=== PATIENT | female | born 1955 | race Caucasian/White ===

== ENCOUNTER → 2023-12-12 15:15 | Outpatient (REF) | payer MEDICARE, SELFPAY | LOC: RAD 15:15 | PROVIDERS: ATTENDING PHYSICIAN Internal Medicine | DX: H92.02 Otalgia, left ear (principal); M26.609 Unspecified temporomandibular joint disorder, unspecified side | CPT/HCPCS: 70330 ==

== ENCOUNTER → 2023-12-22 10:11 | Outpatient (REF) | payer MEDICARE, SELFPAY ==
[2023-12-22 13:35] LABS: Free T4 1.19 ng/dl (0.78-2.19)
[2023-12-22 13:48] LABS: TSH 1.17 uIU/ml (0.47-4.68)
[2023-12-25 03:21] LABS: Thyroid Stim. Immunoglobulin <0.10 IU/L (<=0.54)
== END ==
LOC: REG 10:11
PROVIDERS: ATTENDING PHYSICIAN Internal Medicine Endocrinology, Diabetes & Metabolism; FAMILY PHYSICIAN Internal Medicine
DX: E05.90 Thyrotoxicosis, unspecified without thyrotoxic crisis or storm (principal)
CPT/HCPCS: 36415; 84439; 84443; 84445; 84481

== ENCOUNTER 2023-12-29 09:25 | Outpatient (RCR) | payer MEDICARE, SELFPAY | END 2023-12-29 23:59 | disposition home or self-care (01) | LOC: RPT 09:25 | PROVIDERS: ATTENDING PHYSICIAN Psychiatry & Neurology Behavioral Neurology & Neuropsychiatry; FAMILY PHYSICIAN Internal Medicine | DX: M54.6 Pain in thoracic spine (principal); Z73.6 Limitation of activities due to disability | CPT/HCPCS: 97110; 97163 ==

== ENCOUNTER 2024-01-14 13:52 | Outpatient (RCR) | payer MEDICARE, SELFPAY | END 2024-01-28 09:23 | disposition home or self-care (01) | LOC: RPT 13:52 | PROVIDERS: ATTENDING PHYSICIAN Psychiatry & Neurology Behavioral Neurology & Neuropsychiatry; FAMILY PHYSICIAN Internal Medicine | DX: M54.6 Pain in thoracic spine (principal); Z73.6 Limitation of activities due to disability; R26.2 Difficulty in walking, not elsewhere classified; M62.81 Muscle weakness (generalized) | CPT/HCPCS: 97010; 97110; 97112; 97140 ==

== ENCOUNTER → 2024-06-15 10:41 | Outpatient (REF) | payer MEDICARE, SELFPAY ==
[2024-06-15 11:49] LABS: % Basophils 0.8 % (0-2); % Eosinophils 4.1 % (0-6); % Lymphocytes 23.2 % (20.5-51.1); % Monocytes 8.7 % (1.7-9.3); % Neutrophils 63.2 % (42.2-75.2); Absolute Eosinophils 0.2 10^3/uL (0-0.7); Absolute Lymphocytes 1.2 10^3/uL (1.2-3.4); Absolute Monocytes 0.5 10^3/uL (0.1-0.6); Absolute Neutrophils 3.4 10^3/uL (1.4-6.5); Hematocrit 39.4 % (37.0-47.0); Hemoglobin 13.4 g/dL (12.0-16.0); Mean Corpuscular Hgb 30.7 pg (27.0-31.0); Mean Corpuscular Volume 90.4 fL (81.0-99.0); Mean Platelet Volume 10.1 fL (7.4-10.4); Nucleated Red Blood Cells % 0 %; Platelet Count 233 10^3/uL (130-400); Red Blood Cell Count 4.36 10^6/uL (4.20-5.40); White Blood Cell Count 5.3 10^3/uL (4.8-10.8)
[2024-06-15 12:21] LABS: ALT (SGPT) < 10 U/L (0-35); AST (SGOT) 21 U/L (14-36); Albumin 4.6 g/dl (3.5-5.0); Alkaline Phosphatase 85 U/L (38-126); Blood Urea Nitrogen 22 mg/dl (7-17); Calcium 9.7 mg/dl (8.4-10.2); Carbon Dioxide 33 mmol/L (22-30); Chloride 100 mmol/L (98-107); Glucose 95 mg/dl (70-99); HDL Cholesterol 96 mg/dl; LDL Cholesterol, Calculated 173 mg/dl; Potassium 5.1 mmol/L (3.5-5.1); Sodium 141 mmol/L (135-145); Total Bilirubin 0.8 mg/dl (0.2-1.3); Total Cholesterol 282 mg/dl (50-199); Total Protein 6.6 g/dl (6.3-8.2); Triglyceride 65 mg/dl (10-149); Very Low Density Lipoprotein 13 mg/dl (0-30); eGFR > 60.00
[2024-06-15 12:34] LABS: Free T3 3.19 pg/ml (2.77-5.27); Free T4 1.08 ng/dl (0.78-2.19)
[2024-06-15 12:48] LABS: TSH 1.54 uIU/ml (0.47-4.68)
== END ==
LOC: REG 10:41
PROVIDERS: ATTENDING PHYSICIAN Internal Medicine Endocrinology, Diabetes & Metabolism; FAMILY PHYSICIAN Internal Medicine
DX: E78.2 Mixed hyperlipidemia (principal); I10 Essential (primary) hypertension; E05.90 Thyrotoxicosis, unspecified without thyrotoxic crisis or storm
CPT/HCPCS: 36415; 80053; 80061; 84439; 84443; 84481; 85025

== ENCOUNTER → 2024-07-28 19:16 | Outpatient (REF) | payer MEDICARE, SELFPAY | LOC: WDC 19:16 | PROVIDERS: ATTENDING PHYSICIAN Internal Medicine | DX: Z12.31 Encounter for screening mammogram for malignant neoplasm of breast (principal) | CPT/HCPCS: 77063; 77067 ==

== ENCOUNTER → 2024-08-04 08:37 | Outpatient (REF) | payer MEDICARE, SELFPAY | LOC: RAD 08:37 | PROVIDERS: ATTENDING PHYSICIAN Internal Medicine | DX: M81.0 Age-related osteoporosis without current pathological fracture (principal) | CPT/HCPCS: 77080 ==

== ENCOUNTER → 2024-08-26 13:32 | Outpatient (REF) | payer MEDICARE, SELFPAY | LOC: RAD 13:32 | PROVIDERS: ATTENDING PHYSICIAN Hospitalist | DX: K59.00 Constipation, unspecified (principal) | CPT/HCPCS: 74018 ==

== ENCOUNTER → 2024-09-01 16:32 | Outpatient (REF) | payer MEDICARE, SELFPAY ==
[2024-09-01 17:14] LABS: % Basophils 0.6 % (0-2); % Eosinophils 3.1 % (0-6); % Immature Granulocytes 0.2 % (0-0.5); % Lymphocytes 21.7 % (20.5-51.1); % Monocytes 7.8 % (1.7-9.3); % Neutrophils 66.6 % (42.2-75.2); Absolute Eosinophils 0.2 10^3/uL (0-0.7); Absolute Lymphocytes 1.4 10^3/uL (1.2-3.4); Absolute Monocytes 0.5 10^3/uL (0.1-0.6); Absolute Neutrophils 4.3 10^3/uL (1.4-6.5); Hematocrit 40.3 % (37.0-47.0); Hemoglobin 13.5 g/dL (12.0-16.0); Mean Corp Hgb Conc. 33.5 g/dL (33.0-37.0); Mean Corpuscular Hgb 31.2 pg (27.0-31.0); Mean Corpuscular Volume 93.1 fL (81.0-99.0); Mean Platelet Volume 9.8 fL (7.4-10.4); Nucleated Red Blood Cells % 0 %; Platelet Count 234 10^3/uL (130-400); Red Blood Cell Count 4.33 10^6/uL (4.20-5.40); Red Cell Dist. Width 11.9 % (11.5-14.5); White Blood Cell Count 6.4 10^3/uL (4.8-10.8)
[2024-09-01 17:23] LABS: ALT (SGPT) < 10 U/L (0-35); AST (SGOT) 21 U/L (14-36); Albumin 4.8 g/dl (3.5-5.0); Alkaline Phosphatase 87 U/L (38-126); Blood Urea Nitrogen 18 mg/dl (7-17); Calcium 9.4 mg/dl (8.4-10.2); Carbon Dioxide 31 mmol/L (22-30); Chloride 99 mmol/L (98-107); Glucose 118 mg/dl (70-99); Potassium 4.1 mmol/L (3.5-5.1); Sodium 140 mmol/L (135-145); Total Bilirubin 0.3 mg/dl (0.2-1.3); eGFR > 60.00
== END ==
LOC: REG 16:32
PROVIDERS: ATTENDING PHYSICIAN Hospitalist; FAMILY PHYSICIAN Internal Medicine
DX: R53.81 Other malaise (principal); R44.3 Hallucinations, unspecified
CPT/HCPCS: 36415; 80053; 85025

== ENCOUNTER 2024-12-15 06:19 | Day surgery (SDC) | payer MEDICARE, SELFPAY | END 2024-12-15 12:30 | disposition home or self-care (01) | LOC: GI 06:19 | PROVIDERS: ATTENDING PHYSICIAN Specialist | DX: R10.13 Epigastric pain (principal); R11.0 Nausea; K22.89 Other specified disease of esophagus; K31.7 Polyp of stomach and duodenum; K29.50 Unspecified chronic gastritis without bleeding; K22.70 Barrett's esophagus without dysplasia | CPT/HCPCS: 43239; 88305; 88342 ==

== ENCOUNTER → 2024-12-31 18:19 | Outpatient (REF) | payer MEDICARE, SELFPAY | LOC: RAD 18:19 | PROVIDERS: ATTENDING PHYSICIAN Specialist; FAMILY PHYSICIAN Hospitalist | DX: K59.01 Slow transit constipation (principal); K21.9 Gastro-esophageal reflux disease without esophagitis | CPT/HCPCS: 74018 ==

== ENCOUNTER → 2025-01-18 08:59 | Outpatient (REF) | payer MEDICARE, SELFPAY | LOC: REG 08:59 | PROVIDERS: ATTENDING PHYSICIAN Hospitalist | DX: R30.0 Dysuria (principal) | CPT/HCPCS: 87077; 87086; 87186 ==

== ENCOUNTER → 2025-02-04 11:15 | Outpatient (REF) | payer MEDICARE, SELFPAY | LOC: RAD 11:15 | PROVIDERS: ATTENDING PHYSICIAN Specialist; FAMILY PHYSICIAN Hospitalist; OTHER PHYSICIAN Psychiatry & Neurology Behavioral Neurology & Neuropsychiatry | DX: R10.84 Generalized abdominal pain (principal) | CPT/HCPCS: 74177; Q9967 ==

== ENCOUNTER → 2025-03-02 17:04 | Outpatient (REF) | payer MEDICARE, SELFPAY | LOC: RAD 17:04 | PROVIDERS: ATTENDING PHYSICIAN Obstetrics & Gynecology | DX: N83.209 Unspecified ovarian cyst, unspecified side (principal) | CPT/HCPCS: 76830; 76856 ==

== ENCOUNTER → 2025-04-28 10:52 | Outpatient (REF) | payer MEDICARE, SELFPAY | LOC: RAD 10:52 | PROVIDERS: ATTENDING PHYSICIAN Specialist; FAMILY PHYSICIAN Hospitalist | DX: K59.01 Slow transit constipation (principal); K21.9 Gastro-esophageal reflux disease without esophagitis | CPT/HCPCS: 74018 ==

== ENCOUNTER 2025-04-29 06:24 | Emergency (ER) | payer MEDICARE, SELFPAY ==
[2025-04-29 06:27] VITALS: BP 141/76
[2025-04-29 06:46] LABS: Hematocrit 38.6 % (37.0-47.0); Hemoglobin 13.7 g/dL (12.0-16.0); Mean Corp Hgb Conc. 35.5 g/dL (33.0-37.0); Mean Corpuscular Volume 90.8 fL (81.0-99.0); Nucleated Red Blood Cells % 0 %; Platelet Count 229 10^3/uL (130-400); Red Cell Dist. Width 11.9 % (11.5-14.5)
--- NOTE | 2025-04-29 07:01 | ED.GENMED ---
History of Present Illness
<Aneudy Zheng MD, Resident - Last Filed: 04/29/25 10:11>
General
Chief Complaint: Abdominal Symptoms
Source: patient and family
Exam Limitations: none
Time Seen by Provider: 04/29/25 06:54
History of Present Illness
History of Present Illness:
This is a 70-year-old female with history of Parkinson's, hypothyroidism, hypertension spinal stenosis of lumbar region presenting in the emergency department with complaints of abdominal pain which is radiating to the back. Reports that she has
chronic constipation and her last bowel movement was 6 days ago however she started to notice abdominal pain 5 days ago which was mild in nature and she reached out to her sew out operator who she follows for gut motility disorder(currently on
Linzess) who recommended abdominal x-ray which she completed yesterday and did not get the results yet however when she woke up today she developed intense abdominal pain which was radiating to her back. She informed me that she has a history of
tubal pregnancies and she noticed that this pain is similar to that. Given that she has known ovarian cyst even though her pain is more in the upper abdomen she was concerned which prompted her to visit the emergency department.
She also completed a CT abdominal pelvis scan 3 months ago recommended by GI
Past History
<Aneudy Zheng MD, Resident - Last Filed: 04/29/25 10:11>
Past History
ED Past Medical History: Hyperthyroidism and Other (Graves' disease, Parkinson, )
ED Past Surgical History: Gynecological (tubal with tube removed) and Other (Nasal surgery, cataracts)
Social History
Tobacco: Non-smoker
Alcohol: None
Drug: None
Personal:
Living: with family
Employment: Employed
Family History
Family History: Other (Noncontributory)
Review of Systems
<Aneudy Zheng MD, Resident - Last Filed: 04/29/25 10:11>
Review of Systems
Allergies reviewed?: Yes
Constitutional: Denies fever or chills
EENT: Denies sore throat
Respiratory: Denies cough
Cardiac: Denies chest pain
ABD/GI: Reports abdominal pain, nausea and constipated; Denies vomiting or diarrhea
: Denies dysuria
Musculoskeletal: Denies joint pain
Skin: Denies itching
Neurological: Denies dizzy
Endocrine: Denies polyuria
Phy Exam
<Aneudy Zheng MD, Resident - Last Filed: 04/29/25 10:11>
General Physical Exam
General Presentation: mild distress
General age: appears stated age
General Skin: warm
General Habitus: normal
General Mental: alert
General Hydration: dry mucous membranes
Cardiovascular Exam
Cardiovascular Exam: regular rate/rhythm and no murmur
Pulmonary Exam
Pulmonary Exam: lungs clear and no cough
Gastrointestinal Exam
Gastrointestinal Exam: soft, non distended and tender (Generalized; more in the epigastric area)
Musculoskeletal Exam
Musculoskeletal Exam: no edema
Psychiatric Exam
Psychiatric Exam: normal mood/affect
Course
<Aneudy Zheng MD, Resident - Last Filed: 04/29/25 10:11>
Orders/Labs/Results
Orders:
Orders
04/29/25 06:35
Complete Blood Count/With Diff Urgent
Comprehensive Metabolic Panel Urgent
Lipase Urgent
04/29/25 07:33
Urinalysis Reflex To Culture Urgent
04/29/25 07:34
CT Abd/pelvis W Iv Cont Urgent
Comment:
Reason For Exam: abd pain
04/29/25 07:54
0.9% Sodium Chloride 1000 ml [Nss] 1,000 ml IV BOLUS
Ketorolac [Toradol] 15 mg IV NOW STA
04/29/25 08:47
Enema- Treatment ONCE
Type: Milk of Molasses
Abnormal Lab Results
04/29/25
06:35
WBC 4.6 L 10^3/uL
(4.8-10.8)
MCH 32.2 H pg
(27.0-31.0)
Monocytes % 9.8 H %
(1.7-9.3)
Carbon Dioxide 32 H mmol/L
(22-30)
04/29/25 06:35
04/29/25 06:35
Vital Signs
Initial and Last Documented VS:
Initial Vital Signs
Temp Pulse Resp BP Pulse Ox
97.8 F 80 18 141/76 99
04/29/25 06:27 04/29/25 06:27 04/29/25 06:27 04/29/25 06:27 04/29/25 06:27
Last Documented Vital Signs
Temp Pulse Resp BP Pulse Ox
97.8 F 79 18 136/66 96
04/29/25 06:27 04/29/25 08:31 04/29/25 06:27 04/29/25 08:31 04/29/25 08:31
<Prashanth Awad MD - Last Filed: 04/29/25 08:01>
Orders/Labs/Results
Orders:
Orders
04/29/25 06:35
Complete Blood Count/With Diff Urgent
Comprehensive Metabolic Panel Urgent
Lipase Urgent
04/29/25 07:33
Urinalysis Reflex To Culture Urgent
04/29/25 07:34
CT Abd/pelvis W Iv Cont Urgent
Comment:
Reason For Exam: abd pain
04/29/25 07:54
0.9% Sodium Chloride 1000 ml [Nss] 1,000 ml IV BOLUS
Ketorolac [Toradol] 15 mg IV NOW STA
04/29/25 08:47
Enema- Treatment ONCE
Type: Milk of Molasses
Abnormal Lab Results
04/29/25
06:35
WBC 4.6 L 10^3/uL
(4.8-10.8)
MCH 32.2 H pg
(27.0-31.0)
Monocytes % 9.8 H %
(1.7-9.3)
Carbon Dioxide 32 H mmol/L
(22-30)
04/29/25 06:35
04/29/25 06:35
Vital Signs
Initial and Last Documented VS:
Initial Vital Signs
Temp Pulse Resp BP Pulse Ox
97.8 F 80 18 141/76 99
04/29/25 06:27 04/29/25 06:27 04/29/25 06:27 04/29/25 06:27 04/29/25 06:27
Last Documented Vital Signs
Temp Pulse Resp BP Pulse Ox
97.8 F 79 18 136/66 96
04/29/25 06:27 04/29/25 08:31 04/29/25 06:27 04/29/25 08:31 04/29/25 08:31
<Aneudy Zheng MD, Resident - Last Filed: 04/29/25 10:11>
MDM/Problems Addressed
Differential Diagnosis Includes:
Stercoral colitis vs Biliary colic versus pancreatitis versus viral gastroenteritis versus unlikely abdominal aorta aneurysm versus less likely ovarian cyst rupture
MDM/Problems Addressed:
Check CBC, CMP, lipase, urinalysis
Update: CBC with white count of 4.6, CMP with mild elevation in bicarb,
Lipase within normal limit
X-ray from yesterday reviewed which showed no obvious bowel obstruction, mild fecal material in colon
Check CT abdomen/pelvis with IV contrast
IV Toradol for pain
IV fluid 1 L bolus
update:
CT with no definitive acute abnormalities in the abdomen or pelvis
Moderate amount of stool within the mid colon, unchanged 2.4 cm left adnexal cyst, mild thickened bladder which may be secondary to underdistention.
Will give milk and molasses enema.
If it works we will consider magnesium citrate upon discharge.
update:
Patient reports large bowel movement, denies any blood.
Reports her abdominal pain is significantly improved and she would like to go home now.
Give patient 1 dose of magnesium citrate to take home so she can use for constipation. Advised to take MiraLAX daily
Return precautions reviewed. Patient verified understanding
Chronic conditions affecting care: HTN and Other (Parkinson's, thyroid disease)
<Aneudy Zheng MD, Resident - Last Filed: 04/29/25 10:11>
*Pulse Oximetry
SaO2: 99
Oxygen Mode of Delivery: Room air
Patient hypoxic: no
*Critical Care Note
Total Time (30-74mins, 75-104mins- exclusive of procedures): Not Applicable
ED Attending Note
<Aneudy Zheng MD, Resident - Last Filed: 04/29/25 10:11>
-
Portions of this chart may have been created with voice recognition software.� Occasional wrong word or��sound alike� substitutions may have occurred due to the inherent limitations of voice recognition software.
<Prashanth Awad MD - Last Filed: 04/29/25 08:01>
ED Attending Note
Patient seen and examined by attending physician: Yes
I performed a history and physical exam of patient and discussed management with resident, I reviewed resident's note and agree with documented findings and plan of care.: Yes
ED Attending Note:
I have seen and evaluated the patient with a [id number] encounter. I have spoken to the resident and involved in the medical history, the physical exam, medical decision making.
Evaluation and management service: agree unless noted differently below.
Results interpretation: agree unless noted differently below.
Focused HPI: 70-year-old female with history of Parkinson's disease and chronic constipation presents to the ER with her for evaluation of abdominal pain. Patient reports that symptoms have been ongoing for the past few days but intensified
this morning. She reports severe pain across the upper abdomen. No clear triggering or relieving factors. She reports associated constipation�last bowel movement was 6 days ago. She took MiraLAX as well as enema without any relief. She denies
any vomiting but has had mild nausea. She denies any fever or chills. She does note that she has recent issues with recurrent UTIs although denies any urinary symptoms today. She did have an outpatient x-ray of her abdomen yesterday through her
GI office (she sees Dr. Mcrae) which showed no obstruction.
Physical exam: Awake and alert, appears mildly uncomfortable. Vital signs are within acceptable range. Her abdomen is soft, tender to palpation diffusely maximally in the left upper quadrant. No peritoneal signs or masses appreciated.
Medical Decision Makin-year-old female presents with abdominal pain in the setting of chronic constipation as described above. Vitals and exam as above. Labs sent off including a CBC and a CMP which showed no clinically significant
abnormalities. Will check CT of the abdomen pelvis. Treat pain and provide some fluids. Will reassess after the above.
Discharge Plan
Departure
Patient Disposition: Home (Routine Discharge)
Date of Disposition: 04/29/25
Time of Disposition: 10:08
Patient with high blood pressure during this ER visit?: Yes
Condition: Good
Discharge Problem:
Constipation, Abdominal pain
Instructions: Constipation, Adult (DC), BLOOD PRESSURE
Referrals:
Julio Cesar Mcrae MD [Active, Gastroenterology] - Follow up in 1 week
Tova Enriquez MD [Family Provider, Internal Medicine] - Follow up in 1 week
Activity Restrictions/Additional Instructions:
You were seen in the [facility] emergency department with concerns of abdominal pain and last bowel bowel movement more than 6 days ago. While you were in the emergency department we performed blood work which included a complete blood
count which was unremarkable, complete metabolic panel which showed mild elevation of bicarb otherwise unremarkable. Serum lipase within normal limits. We also checked CT abdomen and pelvis which showed no definitive acute abnormalities in the
abdomen or pelvis. There was moderate amount of stool within the mid colon. Unchanged 2.4 cm left adnexal cyst, mild thickened bladder which may be secondary to underdistention. You received 1 dose of IV Toradol for pain, 1 L of IV fluid normal
saline bolus. You received enema of milk and molasses which eventually helped you to have a bowel movement that improved your abdominal pain. You were given 1 dose of magnesium citrate that you can take home And use that for constipation. Also
encouraged to use MiraLAX every day. If you develop any new symptoms or any worsening concerns please return to the emergency department. Please follow-up with your family doctor and GI outpatient for additional recommendations.
Interventions
Interventions:
*Risk Screen - Suicide Last Done: 04/29/25 06:29
*General Assessment Last Done: 04/29/25 06:29
*ED COVID-19 Vaccine History Last Done: 04/29/25 06:29
Discharge Date and Time
Print Language: FILIPINO
[2025-04-29 07:12] LABS: ALT (SGPT) 12 U/L (0-35); AST (SGOT) 19 U/L (14-36); Albumin 4.6 g/dl (3.5-5.0); Alkaline Phosphatase 82 U/L (38-126); Blood Urea Nitrogen 15 mg/dl (7-17); Calcium 9.8 mg/dl (8.4-10.2); Carbon Dioxide 32 mmol/L (22-30); Chloride 103 mmol/L (98-107); Glucose 95 mg/dl (70-99); Lipase 97 U/L (23-300); Potassium 4.0 mmol/L (3.5-5.1); Sodium 140 mmol/L (135-145); Total Protein 6.9 g/dl (6.3-8.2); eGFR > 60.00
[2025-04-29 07:59] VITALS: BMI 21.6
[2025-04-29] MEDS: TORADOL 15 MG IV (08:06)
[2025-04-29] MEDS: NSS 1000 IV (08:06)
[2025-04-29 08:28] VITALS: BP 136/66
[2025-04-29 08:31] VITALS: BP 136/66
[2025-04-29 09:00] VITALS: BP 134/59
[2025-04-29] MEDS: CITROMA 300 ML PO (10:16)
== END 2025-04-29 10:46 | disposition home or self-care (01) ==
LOC: EMR 06:24
PROVIDERS: Student in an Organized Health Care Education/Training Program; EMERGENCY PHYSICIAN Emergency Medicine; FAMILY PHYSICIAN Hospitalist
DX: K59.00 Constipation, unspecified (principal); R10.10 Upper abdominal pain, unspecified; G20.A1 Parkinson's disease without dyskinesia, without mention of fluctuations; E03.9 Hypothyroidism, unspecified; I10 Essential (primary) hypertension; E05.00 Thyrotoxicosis with diffuse goiter without thyrotoxic crisis or storm; E05.90 Thyrotoxicosis, unspecified without thyrotoxic crisis or storm
CPT/HCPCS: 99284; 96374; 96361; 74177; 80053; 83690; 85025; Q9967

== ENCOUNTER 2025-04-30 07:16 | Emergency (ER) | payer MEDICARE, SELFPAY ==
[2025-04-30 07:19] VITALS: BP 153/83
--- NOTE | 2025-04-30 07:38 | ED.GENMED ---
History of Present Illness
General
Chief Complaint: Bowel Problem
Source: patient
Exam Limitations: none
Time Seen by Provider: 04/30/25 07:24
History of Present Illness
History of Present Illness:
See MDM
Past History
Past History
ED Past Medical History: Hyperthyroidism and Other (Graves' disease, Parkinson, )
ED Past Surgical History: Gynecological (tubal with tube removed) and Other (Nasal surgery, cataracts)
Social History
Tobacco: Non-smoker
Alcohol: None
Drug: None
Personal:
Living: with family
Employment: Employed
Family History
Family History: Other (Noncontributory)
Phy Exam
Physical Exam
Physical Exam:
See MDM
Course
Orders/Labs/Results
Orders:
Orders
04/30/25 07:37
Enema- Treatment ONCE
Type: Milk of Molasses
Cephalexin Monohydrate [Keflex] 500 mg PO NOW STA
Ondansetron Orally Disint [Zofran Odt (Orally Disintegrating)] 4 mg PO NOW STA
04/30/25 07:53
Ketorolac [Toradol] 15 mg IM NOW STA
04/30/25 08:57
Metoclopramide [Reglan] 5 mg PO NOW STA
Vital Signs
Initial and Last Documented VS:
Initial Vital Signs
Temp Pulse Resp BP Pulse Ox
98.3 F 85 16 153/83 98
04/30/25 07:19 04/30/25 07:19 04/30/25 07:19 04/30/25 07:19 04/30/25 07:19
Last Documented Vital Signs
Temp Pulse Resp BP Pulse Ox
98.2 F 82 18 119/55 97
04/30/25 09:41 04/30/25 09:41 04/30/25 09:41 04/30/25 09:41 04/30/25 09:41
MDM/Problems Addressed
Differential Diagnosis Includes:
Note:
CHIEF COMPLAINT(S)
Constipation, nausea, and abdominal pain.
HISTORY OF PRESENT ILLNESS
The patient is a 70-year-old female who presented with complaints of constipation, nausea, and abdominal pain. She has been experiencing ongoing issues with constipation. Patient was seen in the emergency department yesterday. At that time, she
had a CT of her abdomen which showed constipation. She was given a milk of molasses enema which resulted in a bowel movement. She then was given magnesium citrate. The patient describes the pain intensifying after eating. Despite the
interventions, she remains constipated. She is also experiencing nausea, worsening her discomfort.
She had provided a urine sample on Friday through her General Practitioner (GP), which returned positive, and was subsequently prescribed an antibiotic, likely nitrofurantoin, for a suspected urinary tract infection. However, due to the kidney
pain, the antibiotic choice is under reconsideration to avoid renal complications.
Patient has not yet started the antibiotic
ADDITIONAL HISTORY OBTAINED FROM SOURCES OTHER THAN THE PATIENT
The patients grinding wheel dresser mentions they have been monitoring the patients condition and provided additional context about her symptoms and medication history.
EXTERNAL RECORDS REVIEWED
The provider referenced a recent CAT scan of the abdomen, indicating that there was no concerning pathology present, allowing the focus to remain on symptom management. The patient also mentioned accessing lab results through the patients portal,
confirming a positive result for a urinary tract infection.
I evaluated urinalysis on record. In January, patient had a UTI which was positive for E. coli which was resistant to ciprofloxacin
CHRONIC MEDICAL CONDITIONS SIGNIFICANTLY AFFECTING CARE
The patient mentioned having Parkinson�s disease, which may contribute to gastrointestinal motility issues.
SOCIAL HISTORY
The patient has been advised on dietary modifications and the importance of high fluid intake, potentially integrating these changes into the management of her constipation and associated symptoms.
REVIEW OF SYSTEMS
- Gastrointestinal: Ongoing constipation; nausea and abdominal pain, particularly after eating.
- Genitourinary: Recent kidney pain with a positive urine culture indicating a urinary tract infection.
PHYSICAL EXAM
General: Alert, no acute distress.
Skin: Warm, dry.
Head: Normocephalic, atraumatic
Neck: Appears supple, trachea midline.
Eyes, Ears, Nose, Mouth, and Throat: Oral mucosa moist.
Cardiovascular: No signs of cyanosis
Respiratory: Respirations are non-labored.
Abdomen: Non-distended. Mild epigastric tenderness
Musculoskeletal: No deformities
Neurological: No focal neurological deficit observed.
Psychiatric: Cooperative, appropriate mood and affect.
PROBLEM LIST
Acute:
- Constipation
- Nausea
- Abdominal pain
- Urinary tract infection
Chronic:
- Parkinson�s disease
PLAN
1. Initiate treatment for urinary tract infection, considering cephalexin (Keflex) as an alternative to nitrofurantoin due to renal implications.
2. Administer an anti-nausea medication as needed.
3. Consider using milk and molasses enema for constipation.
4. Continue monitoring abdominal symptoms with repeated imaging or laboratory tests to ensure there is no development of additional complications.
5. Reassess hydration and dietary intake to support symptom management and overall health.
DIFFERENTIAL DIAGNOSIS
The Differential Diagnosis includes, in no particular order and is not limited to:
1. Functional constipation
2. Medication side effects
3. Urinary tract infection
4. Small bowel obstruction
5. Bowel ischemia
6. Diverticulitis
7. Colonic pseudo-obstruction
8. Parkinsons disease-related bowel dysfunction
9. Renal colic
10. Gastroenteritis
Note:
PROBLEM LIST
Acute:
- Constipation
- Nausea
- Abdominal pain
- Urinary tract infection
Chronic:
- Parkinson�s disease
CARE-UPDATE
04/30/25 - 09:05
Patient continues to experience some nausea. Prior records and labs reviewed show no significant abnormalities; abdominal and pelvic CT negative except for constipation. Plan to administer dose of Reglan to enhance gut motility.
CARE-UPDATE
04/30/25 - 10:34
Patient reports improvement in symptoms following Reglan administration. Nausea is subsiding. We discussed a short course of Reglan to be used as needed. Initiating cephalexin due to UTI diagnosed last week in the outpatient setting. Patient and
plan to follow up with their appeals writer.
SUMMARY OF ENCOUNTER
The patient, a 70-year-old female, was seen in the emergency department for complaints of constipation, nausea, and abdominal pain. After administration of metoclopramide, she reported improvement in her symptoms, with enhanced gut motility. The
patient was recently diagnosed with a urinary tract infection (UTI) and has not yet initiated antibiotic therapy; cephalexin is planned to be started. Prior abdominal and pelvic CT scans revealed no acute abnormalities except for constipation, and
blood work did not show clinically relevant abnormalities. After prolonged observation, the patient expressed comfort with being discharged.
DISPOSITION
Discharge
ASSESSMENT
The patients primary issues appear related to constipation and a recently diagnosed UTI. The symptoms of nausea and abdominal discomfort have improved with metoclopramide, suggesting possible functional constipation with secondary gastrointestinal
symptoms. The patients UTI is being managed with cephalexin due to renal considerations.
EMERGENCY TREATMENTS ADMINISTERED
Metoclopramide was administered to enhance gut motility and alleviate nausea.
PLAN
1. Initiate treatment for the urinary tract infection with cephalexin.
2. Continue metoclopramide as needed for gut motility and nausea control.
3. Encourage dietary and fluid intake adjustments to prevent constipation.
INDEPENDENT REVIEW OF LABS AND INTERPRETATION OF TESTS
- My independent review of prior blood work shows no clinically relevant abnormalities.
- My independent CT scan interpretation confirms no acute abdominal or pelvic abnormality except for constipation.
PATIENT EDUCATION AND COUNSELING
The patient was advised on the importance of dietary and fluid intake adjustments for constipation management. She was informed about the new antibiotic treatment plan for her UTI.
FOLLOW-UP INSTRUCTIONS
The patient was advised to follow up with her appeals writer and to contact her primary care physician for any worsening symptoms or if there are concerns with the new medication.
MEDICATION RECONCILIATION
- Prescribed cephalexin for the treatment of the urinary tract infection.
- Administered metoclopramide to improve gut motility and reduce nausea.
MEDICAL DECISION MAKING
- Number and Complexity of Problems Addressed: Chronic conditions affecting care include Parkinsons disease, constipation, nausea, abdominal pain, and urinary tract infection. Differential diagnosis includes functional constipation, medication side
effects, UTI, small bowel obstruction, bowel ischemia, diverticulitis, colonic pseudo-obstruction, Parkinson�s disease-related bowel dysfunction, renal colic, and gastroenteritis.
- Data:
Category 1:
- External record review: Prior abdominal and pelvic CT scan showing only constipation, and blood work showing no clinically relevant abnormalities.
- Input from the patients grinding wheel dresser provided additional context.
Category 3:
- Discussion regarding change of antibiotic from nitrofurantoin to cephalexin due to renal implications.
- Risk: Prescription medication was prescribed. Consideration of Admission/Observation: Escalation of care including admission/observation was considered given the complexity and risk of the patients presenting complaint, exam findings, and
underlying comorbidities. However, ultimately I feel the patient is safe for outpatient management with close follow-up. The reasoning includes reassuring work-up results with no acute life/organ-threatening processes, patient symptoms well
controlled upon reevaluation, stable vitals, patient agreeable with discharge, and reliability for follow-up.
DIAGNOSIS
- Constipation, unspecified (ICD-10: K59.00)
- Nausea (ICD-10: R11.0)
- Abdominal pain, unspecified site (ICD-10: R10.9)
- Urinary tract infection, unspecified (ICD-10: N39.0)
*Pulse Oximetry
SaO2: 98
Oxygen Mode of Delivery: Room air
Patient hypoxic: no
*Critical Care Note
Total Time (30-74mins, 75-104mins- exclusive of procedures): Not Applicable
ED Attending Note
-
Portions of this chart may have been created with voice recognition software.� Occasional wrong word or��sound alike� substitutions may have occurred due to the inherent limitations of voice recognition software.
Discharge Plan
Departure
Patient Disposition: Home (Routine Discharge)
Date of Disposition: 04/30/25
Time of Disposition: 10:34
Patient with high blood pressure during this ER visit?: No
Discharge Problem:
Constipation, Nausea, Acute UTI
Instructions: Constipation, Adult (DC)
Prescriptions:
New
metoclopramide HCl [Reglan] 5 mg tablet
5 mg PO Q8H PRN (Reason: nausea and vomiting) Qty: 14 0RF
cephalexin 500 mg capsule
500 mg PO BID 5 Days Qty: 10 0RF
Referrals:
Tova Enriquez MD [Family Provider, Internal Medicine]
Activity Restrictions/Additional Instructions:
Please return for any worsening symptoms.
You may return at any time if you have further concerns.
Please follow up with your doctor at the first available appointment, preferably this week.
Please make an appointment to see your appeals writer.
Thank you for choosing [facility].
Interventions
Interventions:
*Risk Screen - Suicide Last Done: 04/30/25 07:19
*Neglect/Abuse Screening Last Done: 04/30/25 07:19
[id number] Assessment Last Done: 04/30/25 07:49
Discharge Date and Time
Print Language: NEPALI
[2025-04-30] MEDS: ZOFRAN ODT (ORALLY DISINTEGRATING) 4 MG PO (08:05)
[2025-04-30] MEDS: KEFLEX 500 MG PO (08:05)
[2025-04-30] MEDS: TORADOL 15 MG IM (08:07)
[2025-04-30] MEDS: REGLAN 5 MG PO (09:40)
[2025-04-30 09:41] VITALS: BP 119/55
[2025-04-30 11:12] VITALS: BP 145/68
== END 2025-04-30 11:16 | disposition home or self-care (01) ==
LOC: EMR 07:16
PROVIDERS: EMERGENCY PHYSICIAN Student in an Organized Health Care Education/Training Program; FAMILY PHYSICIAN Hospitalist
DX: K59.00 Constipation, unspecified (principal); N39.0 Urinary tract infection, site not specified; G20.A1 Parkinson's disease without dyskinesia, without mention of fluctuations; R11.0 Nausea
CPT/HCPCS: 99284; 96372

== ENCOUNTER 2025-05-01 04:56 | Observation (INO) | payer MEDICARE, SELFPAY ==
[2025-04-30 21:46] VITALS: BP 157/86
--- NOTE | 2025-04-30 22:57 | ED.GENMED ---
History of Present Illness
General
Chief Complaint: Abdominal Pain
Source: patient
Time Seen by Provider: 04/30/25 22:25
History of Present Illness
History of Present Illness:
The patient is a 70-year-old female presenting with abdominal pain that has changed in character and increased in intensity. The patient describes the pain as sharper than previous episodes. She has a known history of Parkinson�s disease and
experiences motility issues, possibly related to gastroparesis, as per previous medical advice. The patient reports that her nausea exacerbates during movement, though the pain itself is not worsened by movement or deep breathing.
The patient recalls having a large bowel movement previously at the emergency department, which initially alleviated symptoms, leading to a discharge decision. However, the symptoms recurred, prompting her return. Previous diagnostics, including a
computed tomography scan, were reported as showing no acute obstructions. The patient received magnesium citrate which provided temporary relief.
Currently, the patient indicates madison-umbilical discomfort upon palpation, describing waves of nausea particularly postprandial, in addition to gurgling noises from her abdomen. Her pain fluctuates and is accompanied by gastrointestinal symptoms and
a sense of fullness.
Past History
Past History
ED Past Medical History: Hyperthyroidism and Other (Graves' disease, Parkinson, )
ED Past Surgical History: Gynecological (tubal with tube removed) and Other (Nasal surgery, cataracts)
Social History
Tobacco: Non-smoker
Alcohol: None
Drug: None
Personal:
Living: with family
Employment: Employed
Family History
Family History: Other (Noncontributory)
Phy Exam
Physical Exam
Physical Exam:
General: Awake, Alert, Oriented X3. No acute distress.
Vitals: unremarkable
Head: Atraumatic
Eyes: Pupils equal, EOMI
Throat: Airway intact, no exudates
Neck: Trachea midline
Lungs: Clear and equal b/l
Heart: Regular rate, no murmurs
Abd: Soft, soft, minimal epigastric discomfort, No pulsatile mass
Neuro: Nonfocal
Skin: Warm, dry, no rash
Extremities: pulses equal b/l, no edema
Course
Orders/Labs/Results
Orders:
Orders
04/30/25 22:55
0.9% Sodium Chloride 500 ml [Nss] 500 ml IV BOLUS
Metoclopramide [Reglan] 10 mg IV NOW STA
04/30/25 22:56
Complete Blood Count/No Diff Urgent
Comprehensive Metabolic Panel Urgent
Lipase Urgent
05/01/25 00:45
Ondansetron Injectable [Zofran] 4 mg IV NOW STA
05/01/25 01:45
Pantoprazole [Protonix IV] 40 mg IV NOW STA
05/01/25 01:50
Urinalysis Reflex To Culture Urgent
Abnormal Lab Results
05/01/25
00:08
RBC 3.91 L 10^6/uL
(4.20-5.40)
Hct 35.1 L %
(37.0-47.0)
MCH 31.7 H pg
(27.0-31.0)
05/01/25 00:08
05/01/25 00:08
Vital Signs
Initial and Last Documented VS:
Initial Vital Signs
Temp Pulse Resp BP Pulse Ox
98.2 F 87 16 157/86 98
04/30/25 21:46 04/30/25 21:46 04/30/25 21:46 04/30/25 21:46 04/30/25 21:46
Last Documented Vital Signs
Temp Pulse Resp BP Pulse Ox
98.2 F 88 16 153/63 98
05/01/25 01:47 05/01/25 01:47 05/01/25 01:47 05/01/25 01:47 05/01/25 01:47
MDM/Problems Addressed
Differential Diagnosis Includes:
Gastritis, adverse effect of antibiotic, gastroparesis
MDM/Problems Addressed:
Patient presents with return of abdominal pain and bloating. Symptoms seem to return to see if she eats anything. No fever or chills. Patient is taking Keflex for a urinary tract infection that was diagnosed as an outpatient. Patient seen in the
emergency room 2 other times. She was treated for constipation which did result in bowel movements but has not really stopped her symptoms from returning. Patient had a CT 48 hours ago which was unremarkable. I do not see any indication to repeat
the CAT scan at this time. Her abdominal exam is not suggestive of an acute inflammatory abdominal process. Gallbladder was normal on the CAT scan and her LFTs are normal so I do not believe an ultrasound of the upper abdomen will be beneficial at
this point. I suspect the patient is developing symptoms of gastroparesis likely related to Parkinson's disease. Will hospitalize the patient for IV fluids, GI evaluation
*Pulse Oximetry
SaO2: 98
Oxygen Mode of Delivery: Room air
Patient hypoxic: no
*Critical Care Note
Total Time (30-74mins, 75-104mins- exclusive of procedures): Not Applicable
ED Attending Note
-
Portions of this chart may have been created with voice recognition software.� Occasional wrong word or��sound alike� substitutions may have occurred due to the inherent limitations of voice recognition software.
Discharge Plan
Departure
Prescriptions:
No Action
metoclopramide HCl [Reglan] 5 mg tablet
5 mg PO Q8H PRN (Reason: nausea and vomiting) Qty: 14 0RF
cephalexin 500 mg capsule
500 mg PO BID 5 Days Qty: 10 0RF
Referrals:
Tova Enriquez MD [Family Provider, Internal Medicine]
Interventions
Interventions:
*Risk Screen - Suicide Last Done: 05/01/25 01:40
*General Assessment Last Done: 05/01/25 01:40
*Neglect/Abuse Screening Last Done: 05/01/25 01:40
*ED- Fall Risk Assessment Last Done: 05/01/25 01:40
*ED COVID-19 Vaccine History Last Done: 05/01/25 01:40
QZ-Bvbtub-Oiepnnqonf Assessment Last Done: 05/01/25 01:48
Discharge Date and Time
Print Language: KISWAHILI
[2025-04-30 23:56] VITALS: BP 174/81
[2025-05-01] VITALS (7 sets, daily range): BP systolic 135–169; BP diastolic 61–88; BMI 21.6
[2025-05-01 00:16] LABS: Hematocrit 35.1 % (37.0-47.0); Hemoglobin 12.4 g/dL (12.0-16.0); Mean Corp Hgb Conc. 35.3 g/dL (33.0-37.0); Mean Corpuscular Volume 89.8 fL (81.0-99.0); Platelet Count 214 10^3/uL (130-400); Red Cell Dist. Width 11.9 % (11.5-14.5)
[2025-05-01 00:42] LABS: ALT (SGPT) < 10 U/L (0-35); AST (SGOT) 21 U/L (14-36); Albumin 4.6 g/dl (3.5-5.0); Alkaline Phosphatase 88 U/L (38-126); Blood Urea Nitrogen 13 mg/dl (7-17); Calcium 9.5 mg/dl (8.4-10.2); Carbon Dioxide 30 mmol/L (22-30); Chloride 104 mmol/L (98-107); Glucose 96 mg/dl (70-99); Lipase 98 U/L (23-300); Potassium 3.7 mmol/L (3.5-5.1); Sodium 138 mmol/L (135-145); Total Protein 6.6 g/dl (6.3-8.2); eGFR > 60.00
[2025-05-01] MEDS: NSS 500 IV (00:50)
[2025-05-01] MEDS: ZOFRAN 4 MG IV (00:52)
[2025-05-01] MEDS: PROTONIX IV 40 MG IV (02:19)
[2025-05-01 03:28] LABS: Urine Character Clear (Clear)
[2025-05-01] MEDS: BENTYL 10 MG PO ×2 (03:28→11:41)
[2025-05-01] MEDS: TORADOL 15 MG IV (03:28)
[2025-05-01 03:40] LABS: Urine Red Blood Cell 0-2 /HPF (0-2)
--- NOTE | 2025-05-01 04:41 | HPS.HSE ---
Family Physician
-
Family Physician: Tova Enriquez MD
Chief Complaint
-
Abd Pain, nausea
History of Present Illness
Patient is a 70y F with PMH significant for Parkinson's disease, IBS-C and thyroid disease who presents to ED complaining of epigastric abdominal discomfort and nausea. Patient states that she has history of similar / intermittent symptoms.
Over the past week or so her symptoms have been more consistent and more severe. She describes discomfort in the epigastric area as well as nausea. Symptoms occur immediately after eating. Does not matter what type of food she eats. No actual
emesis has occurred. Patient denies any fevers / chills. She has been on a bowel regimen for chronic constipation. She has reviewed these symptoms with her PCP and has been seen here in the ED on 3 occasions now for the same.
She was diagnosed with UTI by her PCP recently. She states that she as prescribed an antibiotic - but never actually picked it up.
She was 'changed' to Keflex during her visit here yesterday.
Medical History
Past Medical History
Past Medical History: Reports Other
Additional Past Medical History:
IBS-C
Hypertension
Hyperthyroidism / Goiter
Parkinson's Disease
Asthma
Overactive Bladder
Depression
Past Surgical History: Reports Other
Additional Past Surgical History:
Cataracts
LASIK
Ectopic
Social History
Tobacco: Non-smoker
Alcohol: None
Drug: None
Family History
Family History: Not pertinent
Allergies / Home Medications
Allergies reflects when Allergies were last updated in [facility].
Home Medications with original date entered in [facility]
Allergy/Medication List:
Allergies
Allergy/AdvReac Type Severity Reaction Status Date / Time
No Known Allergies Allergy Verified 04/30/25 21:49
Home Medications
cephalexin 500 mg capsule 500 mg PO BID 5 days #10 caps 04/30/25
metoclopramide HCl 5 mg tablet (Reglan) 5 mg PO Q8H PRN nausea and vomiting #14 tabs 04/30/25
albuterol sulfate 90 mcg/actuation aerosol inhaler 2 puff inhalation Q6H PRN SOB 05/01/25
carbidopa 25 mg-levodopa 100 mg tablet (Sinemet) 1 tab PO QPM 05/01/25
carbidopa 25 mg-levodopa 100 mg tablet (Sinemet) 2 tab PO DAILY 05/01/25
escitalopram oxalate 20 mg tablet 10 mg PO DAILY 05/01/25
ezetimibe 10 mg tablet 10 mg PO DAILY 05/01/25
linaclotide 72 mcg capsule (Linzess) 144 mcg PO DAILY 05/01/25
melatonin 3 mg tablet 3 mg PO HS PRN Insomnia 05/01/25
methimazole 5 mg tablet 5 mg PO DAILY 05/01/25
omeprazole 40 mg capsule,delayed release 40 mg PO BID 05/01/25
oxybutynin chloride 5 mg tablet 5 mg PO DAILY 05/01/25
pravastatin 20 mg tablet 20 mg PO DAILY 05/01/25
Review of Systems
-
History Source: Patient
A 12 point ROS was completed and negative except as noted: Yes
Constitutional: Reports Fatigue; Denies Fever or Chills
Respiratory: Denies Cough or Trouble Breathing
Cardiac: Denies Chest Pain or Palpitations
Abdomen/GI: Reports Abdominal Pain and Nausea; Denies Vomiting, Diarrhea, Constipated, Bloody Stools or Black Stools
: Denies Dysuria or Frequency
Musculoskeletal: Denies Joint Pain or Edema
Neurological: Denies Dizzy or Headache
Physical Exam
Vital Signs
Vital Signs
Temp Pulse Resp BP Pulse Ox
98.5 F 71 16 135/61 98
05/01/25 04:00 05/01/25 04:00 05/01/25 04:00 05/01/25 04:00 05/01/25 04:00
Physical Exam
General: Other (70y F in no acute distress.)
HEENT: Moist mucous membranes and PERRLA
Respiratory: Clear; No Wheezes, Rales or Rhonchi
Cardiac: S1/S2, Regular Rhythm and Murmur (II/ BELLA)
GI: Soft, Non Tender, Non Distended and Normal Bowel Sounds
Musculoskeletal: No Clubbing, No Cyanosis and No Edema
Neuro: AO x 3
Laboratory Results
-
05/01/25 00:08
05/01/25 00:08
Laboratory Results
Total Bilirubin 0.7 mg/dl (0.2-1.3) 05/01/25 00:08
AST 21 U/L (14-36) 05/01/25 00:08
ALT < 10 U/L (0-35) 05/01/25 00:08
Alkaline Phosphatase 88 U/L (38-126) 05/01/25 00:08
Lipase 98 U/L (23-300) 05/01/25 00:08
Impression/Plan
-
A/P: Patient is a 70y F with PMH significant for Parkinson's disease, IBS-C and hyperthyroidism who presents to ED complaining of postprandial epigastric pain and nausea.
Postprandial Epigastric Pain / Nausea
- Observe overnight for further evaluation and treatment.
- CT done 04/29 without evident upper GI abnormality.
- Supportive care, antiemetics PRN, etc.
- GI evaluation for additional recommendations.
- Check US abdomen in AM for further evaluation.
Parkinson's Disease
- Stable. Continue current Sinemet dosing without changes.
- ? gastroparesis secondary to Parkinsonism.
Hyperthyroidism / Multinodular Goiter
- Continue methimazole dose.
- Update TFTs.
IBS-C
- Intensify bowel regimen and follow for clinical results.
? UTI
- UA here not suggestive of infection and no current symptoms.
- Would hold on further abx for now and follow for new urinary symptoms, culture data, etc.
GERD
- Continue PPI.
DVT Prophylaxis: SCDs
Code Status: Full
--- NOTE | 2025-05-01 06:05 | PTCARENOTE ---
Patient arrived from ED via stretcher to 334, ambulated to bed with standby assist and tolerated well. Patient awake and alert, appears to be forgetful and slightly disoriented. Patient states 'my can tell you everything when he gets here.
I'm just rambling at this point.' Skin intact. Call eagle placed in hand. arrived after patient settled in bed, inquiring about parkinsons medications and asking to give patient own meds from home. Informed patient's that pharmacy is
working on verifying medications and will put orders through as soon as they do. Advised patient to take home medications with him today. Will monitor.
--- NOTE | 2025-05-01 06:08 | CON.GI ---
Consultation
-
Date/Time Consultation Requested: 05/01/25, 548
Date/Time Consultation Performed: 05/01/25, 06
Requesting Provider: Micha Gonzalez
Performing Provider: Jed Mendoza
Reason for Consultation: Epigastric pain / gastroparesis ?
Medical History
Chief Complaint / HPI
Chief Complaint: Abd pain, nausea
History of Present Illness:
Ms. 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
nausea. GI has been consulted for further evaluation and management.
Patient states that she has history of similar / intermittent symptoms in the past. Over the past week or so her symptoms have been more consistent and more severe. She describes discomfort in the epigastric area as well as nausea. Symptoms occur
immediately after eating. Does not matter what type of food she eats. No actual emesis has occurred. Patient denies any fevers / chills. She has been on a bowel regimen for chronic constipation. She has reviewed these symptoms with her PCP and
has been seen here in the ED on 3 occasions now for the same. She was diagnosed with UTI by her PCP recently. She states that she as prescribed an antibiotic - but never actually picked it up. She was 'changed' to Keflex during her visit here
yesterday. Otherwise, she denies any further nausea/vomiting since admission. Still without any recent BM since admission. Notes that given her worsening symptoms she came back to the ED for further evaluation. Of note prior EGD 12/2024 was grossly
unremarkable along with a prior colonoscopy back on 05/2022 with colon polyps (HPPs). Otherwise, denies any significant NSAIDs or alcohol use.
In the ED, patient was afebrile and HD-stable. Labs grossly unremarkable including normal LFTs and repeat lipase wnl (98). CBC without any leukocytosis with WBC 5.9 and Hgb 12.4. Prior CT Abd/pelvis 04/29 demonstrating moderate amount of stool
throughout the colon along with mildly thickening of the urinary bladder. She was admitted to medicine for further management.
Past Medical History
Past Medical History: Other (IBS-C Hypertension Hyperthyroidism / Goiter Parkinson's Disease Asthma Overactive Bladder Depression, colon polyps, nondysplastic BE)
Past Surgical History: Other (Cataracts LASIK Ectopic )
Social History
Tobacco: Non-Smoker
Alcohol: None
Family History
Family History: Reviewed & Not Pertinent
Allergies / Home Medications
Allergy/AdvReac Type Severity Reaction Status Date / Time
No Known Allergies Allergy Verified 04/30/25 21:49
�Medication �Instructions �Recorded
cephalexin 500 mg capsule 500 mg PO BID 5 days #10 caps 04/30/25
metoclopramide HCl 5 mg tablet 5 mg PO Q8H PRN nausea and 04/30/25
(Reglan) vomiting #14 tabs
albuterol sulfate 90 mcg/actuation 2 puff inhalation Q6H PRN SOB 05/01/25
aerosol inhaler
carbidopa 25 mg-levodopa 100 mg 1 tab PO QPM 05/01/25
tablet (Sinemet)
carbidopa 25 mg-levodopa 100 mg 2 tab PO DAILY 05/01/25
tablet (Sinemet)
escitalopram oxalate 20 mg tablet 10 mg PO DAILY 05/01/25
ezetimibe 10 mg tablet 10 mg PO DAILY 05/01/25
linaclotide 72 mcg capsule 144 mcg PO DAILY 05/01/25
(Linzess)
melatonin 3 mg tablet 3 mg PO HS PRN Insomnia 05/01/25
methimazole 5 mg tablet 5 mg PO DAILY 05/01/25
omeprazole 40 mg capsule,delayed 40 mg PO BID 05/01/25
release
oxybutynin chloride 5 mg tablet 5 mg PO DAILY 05/01/25
pravastatin 20 mg tablet 20 mg PO DAILY 05/01/25
Review of Systems
-
All other systems: A 12 pt ROS was Negative except as stated above in HPI
Vital Signs
Temp Pulse Resp BP Pulse Ox
98.3 F 86 16 148/76 98
05/01/25 05:54 05/01/25 05:30 05/01/25 05:54 05/01/25 05:00 05/01/25 05:54
Physical Exam
Exam
General: Well Developed, No Apparent Distress and Comfortable
HEENT: Normocephalic, Anicteric and Moist Mucous Membranes
Respiratory: Other (Normal WOB on room air)
GI: Soft, Non Tender, Non Distended and Normal Bowel Sounds
Skin: Warm and Dry
Neuro: Awake, Alert, Oriented and Nonfocal/Grossly Intact
Psych: Calm
Results
WBC 5.9 10^3/uL (4.8-10.8) 05/01/25 00:08
Hgb 12.4 g/dL (12.0-16.0) 05/01/25 00:08
Hct 35.1 % (37.0-47.0) L 05/01/25 00:08
MCV 89.8 fL (81.0-99.0) 05/01/25 00:08
Plt Count 214 10^3/uL (130-400) 05/01/25 00:08
Sodium 138 mmol/L (135-145) 05/01/25 00:08
Potassium 3.7 mmol/L (3.5-5.1) 05/01/25 00:08
Chloride 104 mmol/L (98-107) 05/01/25 00:08
Carbon Dioxide 30 mmol/L (22-30) 05/01/25 00:08
BUN 13 mg/dl (7-17) 05/01/25 00:08
Creatinine 0.6 mg/dL (0.6-1.0) 05/01/25 00:08
Calcium 9.5 mg/dl (8.4-10.2) 05/01/25 00:08
Total Bilirubin 0.7 mg/dl (0.2-1.3) 05/01/25 00:08
AST 21 U/L (14-36) 05/01/25 00:08
ALT < 10 U/L (0-35) 05/01/25 00:08
Alkaline Phosphatase 88 U/L (38-126) 05/01/25 00:08
Lipase 98 U/L (23-300) 05/01/25 00:08
Diagnostic Image Results: As detailed above
Assessment / Plan
-
Ms. 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
nausea. GI has been consulted for further evaluation and management.
#Abdominal Pain
#Post-prandial Dyspepsia
#Nausea
#IBS-C #CT Imaging with Increased Stool Fowler (on prior CT Imaging)
#C/f UTI
#Hx of Parkinson's Disease
Impression: Patient representing to the ED with lower abdominal pain along with post-prandial dyspepsia along with nausea. Prior symptoms similar in the past but recent worsening symptoms prompting her to come back to the ED. Previous labs grossly
unremarkable including normal LFTs as well as lipase and CBC without any evidence of anemia or leukocytosis. Prior CT imaging along with previous CT scans in past and X-rays demonstrating significant stool burden. Suspect symptoms multifactorial and
still likely from underlying constipation with a component of her underlying IBS likely further playing a role and driving her upper symptoms. Previous EGD unremarkable back on 12/2024 and would defer any plans for a repeat endoscopic evaluation at
this time. Questionable UTI as previously treated with antibiotics in ED.
Recommendations:
- Okay for CLD, defer from advancing today
- IV PPI 40 mg BiD
- Reasonable to obtain US Abdomen as previously ordered
- No plans for an EGD at this time and favor ongoing supportive care with bowel regimen
- Start Miralax 238 grams for bowel purge given her constipation and increased stool burden
- Minimize opioids as much as possible. Okay for Bentyl as needed for spasms/cramps
- Would defer any plans in obtaining a GES at this time as lower suspicion for gastroparesis
- Pain control and anti-emetics PRN
- Defer to primary team regarding abx treatment for possible UTI
- Rest of care as per primary team
Discussed with primary internal medicine team. GI will continue to follow. Please call with any questions or concerns.
Data Reviewed
-
Radiology: Image Personally Visualized and interpreted and Report Reviewed by me
CT Scan: Image Personally Visualized and interpreted and Report Reviewed by me
Old Records: Reviewed
-
-
Thank you for consultation and allowing me to participate in the patient's care. Please call the senior health consultant GI physician during the after hours with any questions or concerns.
[2025-05-01] MEDS: LR 1000 IV (06:44)
[2025-05-01] MEDS: MIRALAX 17 GRAMS PO (07:35)
[2025-05-01] MEDS: PROTONIX 40 MG PO (07:35)
[2025-05-01] MEDS: PRAVACHOL 20 MG PO (07:35)
[2025-05-01] MEDS: COLACE 100 MG PO (07:35)
[2025-05-01] MEDS: LEXAPRO 10 MG PO (07:35)
[2025-05-01 07:47] LABS: Hematocrit 33.9 % (37.0-47.0); Hemoglobin 12.0 g/dL (12.0-16.0); Mean Corp Hgb Conc. 35.4 g/dL (33.0-37.0); Mean Corpuscular Volume 89.7 fL (81.0-99.0); Platelet Count 204 10^3/uL (130-400); Red Cell Dist. Width 11.8 % (11.5-14.5)
[2025-05-01 08:13] LABS: Blood Urea Nitrogen 11 mg/dl (7-17); Calcium 8.9 mg/dl (8.4-10.2); Carbon Dioxide 26 mmol/L (22-30); Chloride 107 mmol/L (98-107); Estimated Creatinine Clearance 76 ml/min; Glucose 91 mg/dl (70-99); Potassium 3.9 mmol/L (3.5-5.1); Sodium 139 mmol/L (135-145); eGFR > 60.00
[2025-05-01] MEDS: GAVILAX 238 GM PO (11:40)
--- NOTE | 2025-05-01 12:28 | CM ---
Patient seen at bedside
IA completed
DO form explained & signed. In chart
Patient lives with in 2 story home, 4 [address], flight of stairs to bedroom/bathroom
PLOF: independent
Denies DME
Denies VN/Rehab
Denies insecurities
PCP: Tova Enriquez
Pharmacy: [facility]
PLAN: home, no needs when stable
--- NOTE | 2025-05-01 12:45 | W.PN.UPDATE ---
Update Note
Progress Note Update
Hospitalist H&P from 0441 this morning. I have personally evaluated the patient at the bedside on the floor. I have reviewed the patient's chart
70-year-old female with Parkinson's disease, hypothyroidism, IBS-C that is presenting to the ED with postprandial epigastric pain over the past week, that has been worsening. Symptoms occur after eating and are not dependent on which foods she
eats. Has not had any episodes of vomiting, also denies fevers or chills. CT on 04/29 without any acute abnormality. Abdomen US ordered on this admission without any findings of cholecystitis or other abnormalities. Is received dicyclomine and IV
fluids here with improvement. Evaluated by GI this morning and started on high-dose MiraLAX 238 g for bowel purge.
AAO x 4, no FND, NAD. Odd affect. Cardiopulmonary exam benign. Abdomen slightly firm though otherwise nontender, no masses or lesions, reduced bowel sounds. No edema, palpable pulses, skin warm and dry
Postprandial epigastric discomfort. Suspect related to IBS-C. TSH normal. Recent CT without acuity though demonstrated worsened stool burden from previous imaging. Send clinical improvement with minimal intervention here. Evaluated by GI who
ordered high-dose MiraLAX. No plans for EGD or gastric emptying study as suspicion is low for gastroparesis or other pathology. Will follow-up this afternoon and consider discharge if patient remains clinically improved. Will need to follow-up
with maintenance superintendent in office on 05/05/2025. Continue Linzess and PPI at time of DC
Concern for UTI. Recently seen by PCP who gave her prescription. Unclear if she was taking this. No symptoms at this time, UA bland in the ED. Will recommend that patient continue her oral antibiotic regimen that was prescribed as OP
CLD and advance as tolerated
SCDs
Full code
Likely discharge within the next 24 hours
--- NOTE | 2025-05-01 14:07 | W.DCSUMMARY ---
Discharge Summary
Discharge Data
Date of Admission: 05/01/25
Date of Discharge: 05/01/25
Total time spent discharging patient (in min): 35
-
Pending Results: No
Hospital Course
Discharging Physician : Goldy Benites DO
Disposition : Home
Principal Discharge diagnosis :
Postprandial epigastric pain
IBS�C
Chronic Discharge diagnosis :
Parkinson's disease
Hypothyroidism
Asthma
OAB
Primary hypertension
Hospital Course :
70-year-old female that presented to the emergency department with abdomen discomfort after meals. Recently had a CT scan on 04/29 that did not show any acuity, did show signs of worsening stool burden compared to previous studies. Patient began to
feel improved shortly after admission. Assessed by gastroenterology who recommended OP follow-up with her deicer element winder machine on previously scheduled office visit 05/05/2025. Provided 238 g dose of MiraLAX while in the hospital. Encouraged her to
continue on her home Linzess and other bowel regimen. To continue cephalexin prescribed prior to admission for UTI. Should follow-up with GI in office for consideration of repeat colonoscopy and possible escalation of her bowel regimen.
Prescribed Bentyl 4 times daily as needed for abdominal cramping
Consultants:
Gastroenterology: Jed Mendoza MD
Important imaging findings :
Abdomen ultrasound 05/01/2025
IMPRESSION: Normal appearance of the gallbladder with no evidence for biliary ductal dilation. Small cyst identified within the posterior and medial right lobe the liver on recent CT examination is not visualized sonographically. No focal
abnormality of the liver sonographically.
Procedure findings : N/A
Follow-up:
-Follow-up with PCP in 1 to 2 weeks after discharge
-Follow-up in office with gastroenterology on 05/05/2025
-Prescription provided for dicyclomine 4 times daily as needed for abdomen pain
Discharge Plan
-
Patient Disposition: Home (Routine Discharge)
Discharge Diagnosis/Procedures: Epigastric pain
IBS-C
Condition: Fair
Diet: As tolerated
Activity: As tolerated
Driving Restrictions: No driving for 24 hours
Bathing Restrictions: None
Blood Work: None
Others Tests: Discussed repeat colonoscopy with gastroenterology at upcoming office visit
Referrals:
Julio Cesar Mcrae MD [Active, Gastroenterology]
Referral Note: 05/05/25
Tova Enriquez MD [Family Provider, Internal Medicine]
Additional Discharge Medication Instructions: Use dicyclomine 4 times daily NEEDED for abdominal cramping
Continue home bowel regimen including Linzess daily
Prescriptions:
New
dicyclomine 20 mg tablet
20 mg PO QID PRN (Reason: abdominal pain) Qty: 120 0RF
Continued
metoclopramide HCl [Reglan] 5 mg tablet
5 mg PO Q8H PRN (Reason: nausea and vomiting) Qty: 14 0RF
cephalexin 500 mg capsule
500 mg PO BID 5 Days Qty: 10 0RF
melatonin 3 mg Tablet
3 mg PO HS PRN (Reason: Insomnia)
omeprazole 40 mg Capsule,Delayed Release(Dr/Ec)
40 mg PO BID
methimazole 5 mg Tablet
5 mg PO DAILY
pravastatin 20 mg Tablet
20 mg PO DAILY
albuterol sulfate 90 mcg/actuation Hfa Aerosol Inhaler
2 puff INHALATION Q6H PRN (Reason: SOB)
carbidopa-levodopa [Sinemet] 25-100 mg Tablet
2 tab PO DAILY
carbidopa-levodopa [Sinemet] 25-100 mg Tablet
1 tab PO QPM
oxybutynin chloride 5 mg Tablet
5 mg PO DAILY
escitalopram oxalate 20 mg Tablet
10 mg PO DAILY
ezetimibe 10 mg Tablet
10 mg PO DAILY
Linzess 72 mcg Capsule
144 mcg PO DAILY
Discharge Orders:
Discharge Patient (As Directed); Ordered 05/01/25
Ordered By: Goldy Benites
Discharge Date and Time
Print Language: BELARUSIAN
== END 2025-05-01 14:20 | disposition home or self-care (01) ==
LOC: 3 WEST ACU 04:56
PROVIDERS: ADMITTING PHYSICIAN Hospitalist; ATTENDING PHYSICIAN Internal Medicine; CONSULT PHYSICIAN Student in an Organized Health Care Education/Training Program; EMERGENCY PHYSICIAN Emergency Medicine; FAMILY PHYSICIAN Hospitalist
DX: K58.1 Irritable bowel syndrome with constipation (principal); R10.13 Epigastric pain; G20.A1 Parkinson's disease without dyskinesia, without mention of fluctuations; E05.20 Thyrotoxicosis with toxic multinodular goiter without thyrotoxic crisis or storm; N39.0 Urinary tract infection, site not specified; K21.9 Gastro-esophageal reflux disease without esophagitis; I10 Essential (primary) hypertension; Z79.899 Other long term (current) drug therapy; F32.A Depression, unspecified; Z87.440 Personal history of urinary (tract) infections; E03.9 Hypothyroidism, unspecified; J45.909 Unspecified asthma, uncomplicated; K31.84 Gastroparesis; N32.81 Overactive bladder
CPT/HCPCS: 76700; 80048; 80053; 81003; 81015; 83690; 84443; 85027; 87086; 93005; 96361; 96374; 96375; 99284; G0378

== ENCOUNTER → 2025-05-06 18:01 | Outpatient (REF) | payer MEDICARE, SELFPAY | LOC: MRI 3T 18:01 | PROVIDERS: ATTENDING PHYSICIAN Obstetrics & Gynecology; FAMILY PHYSICIAN Hospitalist | DX: N83.292 Other ovarian cyst, left side (principal) | CPT/HCPCS: 72197; A9575 ==

== ENCOUNTER → 2025-05-10 13:12 | Outpatient (REF) | payer MEDICARE, SELFPAY ==
[2025-05-10 16:00] LABS: Free T3 3.57 pg/ml (2.77-5.27)
[2025-05-10 16:14] LABS: TSH 0.88 uIU/ml (0.47-4.68)
[2025-05-10 16:30] LABS: ALT (SGPT) 14 U/L (0-35); AST (SGOT) 18 U/L (14-36)
== END ==
LOC: REG 13:12
PROVIDERS: ATTENDING PHYSICIAN Internal Medicine Endocrinology, Diabetes & Metabolism; FAMILY PHYSICIAN Hospitalist
DX: E05.90 Thyrotoxicosis, unspecified without thyrotoxic crisis or storm (principal)
CPT/HCPCS: 36415; 84439; 84443; 84450; 84460; 84481

== ENCOUNTER → 2025-06-28 09:44 | Outpatient (REF) | payer MEDICARE, SELFPAY ==
[2025-06-28 11:33] LABS: HDL Cholesterol 99 mg/dl; LDL Cholesterol, Calculated 135 mg/dl; Very Low Density Lipoprotein 16 mg/dl (0-30)
== END ==
LOC: REG 09:44
PROVIDERS: ATTENDING PHYSICIAN Internal Medicine Cardiovascular Disease; FAMILY PHYSICIAN Hospitalist
DX: E78.2 Mixed hyperlipidemia (principal)
CPT/HCPCS: 36415; 80061

== ENCOUNTER → 2025-08-11 10:00 | Outpatient (REF) | payer MEDICARE, SELFPAY ==
[2025-08-11 11:19] LABS: Hematocrit 38.4 % (37.0-47.0); Hemoglobin 13.0 g/dL (12.0-16.0); Mean Corp Hgb Conc. 33.9 g/dL (33.0-37.0); Mean Corpuscular Volume 95.5 fL (81.0-99.0); Nucleated Red Blood Cells % 0 %; Platelet Count 236 10^3/uL (130-400); Red Cell Dist. Width 12.2 % (11.5-14.5)
[2025-08-11 11:34] LABS: Urine Character Slightly Cloudy (Clear)
[2025-08-11 12:29] LABS: Blood Urea Nitrogen 13 mg/dl (7-17); Calcium 9.5 mg/dl (8.4-10.2); Carbon Dioxide 30 mmol/L (22-30); Chloride 100 mmol/L (98-107); Glucose 86 mg/dl (70-99); HDL Cholesterol 94 mg/dl; LDL Cholesterol, Calculated 89 mg/dl; Potassium 4.6 mmol/L (3.5-5.1); Sodium 138 mmol/L (135-145); Very Low Density Lipoprotein 10 mg/dl (0-30); eGFR > 60.00
[2025-08-11 12:35] LABS: Urine Squamous Cell >30 /LPF (Few); Urine White Cell 30-40 /HPF (0-5)
== END ==
LOC: REG 10:00
PROVIDERS: ATTENDING PHYSICIAN Nurse Practitioner; FAMILY PHYSICIAN Hospitalist; REFERRING PHYSICIAN Internal Medicine Cardiovascular Disease
DX: N32.89 Other specified disorders of bladder (principal); E78.2 Mixed hyperlipidemia; R10.9 Unspecified abdominal pain
CPT/HCPCS: 36415; 80048; 80061; 81003; 81015; 85025; 87086

== ENCOUNTER → 2025-08-17 12:12 | Outpatient (REF) | payer MEDICARE, SELFPAY | LOC: RAD 12:12 | PROVIDERS: ATTENDING PHYSICIAN Obstetrics & Gynecology; FAMILY PHYSICIAN Hospitalist; REFERRING PHYSICIAN Nurse Practitioner | DX: D39.12 Neoplasm of uncertain behavior of left ovary (principal); N32.89 Other specified disorders of bladder | CPT/HCPCS: 76830; 76856; 93005 ==

== ENCOUNTER 2025-08-22 06:21 | Day surgery (SDC) | payer MEDICARE, SELFPAY ==
[2025-08-22] VITALS (9 sets, daily range): BP systolic 121–166; BP diastolic 57–74
[2025-08-22] MEDS: NORMOSOL-R/PLASMALYTE-A 1000 IV (13:30)
[2025-08-22] MEDS: SUBLIMAZE 25 MCG IV ×3 (15:36→15:54)
== END 2025-08-22 17:16 | disposition home or self-care (01) ==
LOC: SDS 06:21
PROVIDERS: ATTENDING PHYSICIAN Urology
DX: N30.80 Other cystitis without hematuria (principal); Z87.440 Personal history of urinary (tract) infections; G20.A1 Parkinson's disease without dyskinesia, without mention of fluctuations; N39.3 Stress incontinence (female) (male)
CPT/HCPCS: 52204; 88305; 88342

== ENCOUNTER → 2025-09-16 14:39 | Outpatient (REF) | payer MEDICARE, SELFPAY | LOC: RAD 14:39 | PROVIDERS: ATTENDING PHYSICIAN Hospitalist | DX: R06.09 Other forms of dyspnea (principal) | CPT/HCPCS: 71046 ==